=== PATIENT | male | born 1980 | race Two or more races ===

== ENCOUNTER 2019-04-13 05:57 | Day surgery (SDC) | payer BC ==
[~2019-04-13] VITALS: Ht 190.5 cm; Wt 124.7 kg
[2019-04-13] MEDS ORDERED: ceFAZolin 1GM/50ML 50 ML IV ONE ×2 (06:06→06:08)
[2019-04-13] MEDS ORDERED: SUCCINYLCHOLINE CHLORIDE 20 MG/ML 10ML VIAL IV ONE (07:18)
[2019-04-13] MEDS ORDERED: LIDOCAINE 1% HCL (LOCAL ANESTH.) INJ 20ML MDV ONE ×2 (07:18→07:24)
[2019-04-13] MEDS ORDERED: KETOROLAC TROMETH 30 MG/ML 1ML VIAL IV ONE (07:19)
[2019-04-13] MEDS ORDERED: MIDAZOLAM HCL 1MG/1ML-2 ML VIAL ONE (07:25)
[2019-04-13] MEDS ORDERED: PROPOFOL 10 MG/ML 20 ML IV ONE (07:26)
[2019-04-13] MEDS ORDERED: ROCURONIUM 10MG/ML 10ML VIAL IV ONE (07:26)
[2019-04-13] MEDS ORDERED: METOCLOPRAMIDE HCL 5MG/ml INJ 2ml VIAL ONE (07:28)
[2019-04-13] MEDS ORDERED: fentaNYL CITRATE 100 MCG/2 ML VL ONE (07:43)
[2019-04-13] MEDS ORDERED: ONDANSETRON HCL 4 MG/2 ML VIAL IV PRN (08:15)
[2019-04-13] MEDS ORDERED: HYDROmorphone HCL 2 MG/ML VL IV PRN (08:15)
[2019-04-13] MEDS ORDERED: NALOXONE HCL 0.4 MG/ML VIAL IV PRN (08:15)
[2019-04-13] MEDS ORDERED: MORPHINE SULF(PF) 0.5MG/ML 10ML VIAL ONE (08:37)
[2019-04-13] MEDS: HYDROmorphone HCL 2 MG/ML VL IV PRN ×2 (09:38→09:54)
[2019-04-13 10:40] VITALS: BP 141/88
== END 2019-04-13 10:52 | disposition home or self-care (01) ==
LOC: SUR 05:57
PROVIDERS: ATTEND Orthopaedic Surgery
DX: M23.252 Derangement of posterior horn of lateral meniscus due to old tear or injury, left knee (principal); M94.262 Chondromalacia, left knee; M19.90 Unspecified osteoarthritis, unspecified site; G47.33 Obstructive sleep apnea (adult) (pediatric); E66.9 Obesity, unspecified; Z98.890 Other specified postprocedural states
CPT/HCPCS: 29873; 29879; 29880; J0330; J0690; J1170; J1885; J2001; J2250; J2270; J2704; J2765; J3010